=== PATIENT | male | born 1975 ===

== ENCOUNTER 2023-07-14 12:28 | Outpatient (CLI) | payer OTHER ==
--- NOTE | 2023-07-14 17:20 | MRI Report ---
PROCEDURE: KNEE WO - RT INDICATIONS: RIGHT KNEE PAIN TECHNIQUE: Noncontrast sagittal PD fast spin echo and T2 fast spin echo with fat saturation, sagittal 3-D gradie nt sequence with fat saturation; coronal T1 spin echo and PD fast spin echo with fat saturation, and axial PD fast spin echo with fat saturation through the knee. COMPARISON: None. FINDINGS: Image quality: Excellent. Menisci: Oblique tear is seen involving posterior horn of medial meniscus extending to inferior artic ulating surface. The lateral meniscus is intact. The meniscal root ligaments appear intact. Cruciate ligaments: The anterior cruciate ligament is mildly thickened near its tibial insertion wit h intrasubstance T2 hyperintense signal. The posterior cruciate ligament is intact. Medial structures: The medial collateral ligament appears intact. Visualized portions of the pes ans erinus tendons appear normal. No abnormal bursal fluid. Lateral structures: The lateral collateral ligament, long and short heads of the biceps femoris tend on appear intact. The popliteus tendon appears normal. Iliotibial band appears normal. Anterior structures: The quadriceps and patellar tendons appear intact. Patellar alignment is florian l. No femoral trochlear dysplasia or ventral trochlear prominence. No edema in the infrapatellar fa t pad. Bones and cartilage: No bone marrow contusions or fractures. The cartilage of the medial and latera l femorotibial compartments appears normal in thickness. Low-grade chondromalacia patella involving l ateral facet of patella cartilage is seen. Joint space: There is physiologic knee joint fluid. No Gibbons's cyst. Normal appearing synovial pli are incidentally noted. IMPRESSION: 1. Subtle oblique tear involving posterior horn of medial meniscus extending to inferior articulating surface. The lateral meniscus is intact. 2. Sprain/low-grade intrasubstance partial thickness tear involving distal ACL. No ACL rupture. The P CL is intact. 3. 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 No marrow edema. No fractur e or dislocation. Reviewed by: Thaddeus Del Real MD on 07/14/2023 5:18 PM PST Approved by: Thaddeus Del Real MD on 07/14/2023 5:18 PM PST Station ID: [id number]
== END 2023-07-14 12:29 | disposition home or self-care (01) ==
LOC: DI 12:28
PROVIDERS: ATTEND Orthopaedic Surgery
DX: S83.241A Other tear of medial meniscus, current injury, right knee, initial encounter (principal); S83.511A Sprain of anterior cruciate ligament of right knee, initial encounter; M22.41 Chondromalacia patellae, right knee